=== PATIENT | female | born 1985 | race Two or more races ===

== ENCOUNTER 2022-08-12 14:54 | Emergency (ER) | payer OTHER ==
[~2022-08-12] VITALS: Ht 172.7 cm; Wt 75.0 kg
[2022-08-12 15:04] VITALS: BP 124/77
[2022-08-12 16:18] LABS: CLARITY URINE HAZY (CLEAR); COLOR URINE YELLOW (YELLOW); PH URINE 5.5 (4.5-8.0); PROTEIN URINE TRACE (NEGATIVE); SPECIFIC GRAVITY URINE 1.021 (1.005-1.030)
[2022-08-12 16:19] LABS: KETONES URINE TRACE (NEGATIVE); LEUKOCYTE ESTERASE URINE TRACE (NEGATIVE); NITRITE URINE NEGATIVE (NEGATIVE); OCCULT BLOOD URINE NEGATIVE (NEGATIVE); UROBILINOGEN URINE 0.2 E.U./dL (0.2-1.0)
[2022-08-12] MEDS ORDERED: KETOROLAC 15MG/ML VIAL IV ONE (17:15)
[2022-08-12] MEDS ORDERED: SODIUM CHLORIDE 0.9% 1,000 ML IV ONE (17:15)
[2022-08-12 17:41] LABS: BASOPHILS % 0.6 % (0.0-2.0); EOSINOPHILS % 1.1 % (0.0-5.0); HEMATOCRIT. 35.4 % (36.0-48.0); HEMOGLOBIN. 11.9 g/dL (12.0-16.0); LYMPHOCYTES % 20.8 % (20.0-50.0); MEAN CORPUSCULAR HEMOGLOBIN 29.2 pg (28.0-32.0); MEAN CORPUSCULAR VOLUME 87.2 fL (81.0-99.0); MEAN PLATELET VOLUME 10.4 fl (7.4-10.4); MONOCYTES % 7.2 % (2.0-8.0); NEUTROPHILS % 70.3 % (40.0-76.0); PLATELET 283 x1000/uL (130-400); RED BLOOD CELL COUNT 4.06 mill/uL (4.2-5.4); RED CELL DISTRIBUTION WIDTH 14.2 % (11.6-14.6)
[2022-08-12 17:45] LABS: CHLORIDE 106 mEq/L (98-107)
[2022-08-12] MEDS ORDERED: ONDANSETRON 4MG ODT PO ONE (17:45)
[2022-08-12] MEDS ORDERED: KETOROLAC 15MG/ML VIAL IM ONE (19:00)
[2022-08-12] MEDS ORDERED: ACETAMINOPHEN 325MG TABLET PO ONE (19:00)
== END 2022-08-12 18:21 | disposition left against medical advice (07) ==
LOC: ER 14:54
DX: R10.31 Right lower quadrant pain (principal)
CPT/HCPCS: 36415; 76830; 76856; 76857; 80053; 81003; 83605; 84702; 85025; 85610; 93005; 93976; 99285; J7030; J1885; Q0162